=== PATIENT | female | born 1965 | race Caucasian/White ===

== ENCOUNTER → 2019-05-30 14:19 | Outpatient (BNVA) | payer MEDICAID, SELFPAY | PROVIDERS: Family Provider Family Medicine; PCP Family Medicine; Visit Provider Specialist | DX: G43.711 Chronic migraine without aura, intractable, with status migrainosus (principal); F44.5 Conversion disorder with seizures or convulsions; F17.210 Nicotine dependence, cigarettes, uncomplicated | CPT/HCPCS: 64615; 99213; J0585 ==

== ENCOUNTER → 2019-09-05 14:41 | Outpatient (BNVA) | payer MEDICAID, SELFPAY | PROVIDERS: Family Provider Family Medicine; PCP Family Medicine; Visit Provider Specialist | DX: G43.711 Chronic migraine without aura, intractable, with status migrainosus (principal); F44.5 Conversion disorder with seizures or convulsions; F17.210 Nicotine dependence, cigarettes, uncomplicated | CPT/HCPCS: 64615; 99212; J0585 ==

== ENCOUNTER → 2019-11-28 12:50 | Outpatient (BNVA) | payer MEDICAID, SELFPAY | PROVIDERS: Family Provider Family Medicine; PCP Family Medicine; Visit Provider Specialist | DX: G43.711 Chronic migraine without aura, intractable, with status migrainosus (principal); F44.5 Conversion disorder with seizures or convulsions; F17.210 Nicotine dependence, cigarettes, uncomplicated | CPT/HCPCS: 64615; 99212; 99213; J0585 ==

== ENCOUNTER → 2020-02-20 09:28 | Outpatient (BNVA) | payer MEDICAID, SELFPAY | PROVIDERS: Family Provider Family Medicine; PCP Family Medicine; Visit Provider Specialist | DX: G43.711 Chronic migraine without aura, intractable, with status migrainosus (principal); F44.5 Conversion disorder with seizures or convulsions; F17.210 Nicotine dependence, cigarettes, uncomplicated | CPT/HCPCS: 64615; 99212; J0585 ==

== ENCOUNTER 2020-03-23 09:41 | Outpatient (CLI) | payer MEDICAID, SELFPAY ==
--- NOTE | 2020-03-23 09:52 | MR_ITS ---
WS: [id number] MRI HEAD AND ORBITS WITHOUT GADOLINIUM ENHANCEMENT. TECHNIQUE: Sagittal T1, T2 axial, T2 axial FLAIR, axial susceptibility weighted imaging, axial diffus ion weighted images, and coronal T2 images were obtained. . Axial T1 thin and High-resolution T2 imag ing of the orbits obtained. CLINICAL INFORMATION: UNSPECIFIED FIELD OF VISION DEFECT COMPARISON: CT head FINDINGS: No evidence of restricted diffusion to suggest acute ischemia. Ventricular system and basal cisterns are patent. Moderate small vessel changes. Mild parenchymal volume loss. Small vessel changes in the bryan. No hemosiderin on susceptibly weighted images. Normal optic chiasm and pituitary infundibulum. Normal cavernous sinuses and Meckel's cave. Temporal lobes and hippocampal formations are normal in appearance. No evidence of optic nerve edema. Normal i ntraconal fat. Normal visualized rectus muscles. MR/MR head orbits wo con [id number] IMPRESSION: 1. No evidence of restricted diffusion to suggest acute ischemia. 2. Mild small vessel changes with mild parenchymal volume loss. Small vessel c hanges in the bryan. 3. Normal optic chiasm and pituitary infundibulum. No edema in the optic nerve s. 4. Normal cavernous sinuses and Meckel's cave. 5. Normal intraconal fat. Normal visualized rectus muscles.
== END 2020-03-23 09:42 | disposition home or self-care (01) ==
LOC: RADWPI 09:44
PROVIDERS: PCP Family Medicine; Visit Provider Ophthalmology
DX: H53.40 Unspecified visual field defects (principal)
CPT/HCPCS: 70336; 70551

== ENCOUNTER → 2020-05-21 11:24 | Outpatient (BNVA) | payer MEDICAID, SELFPAY | PROVIDERS: PCP Family Medicine; Visit Provider Specialist | DX: G43.711 Chronic migraine without aura, intractable, with status migrainosus (principal); F44.5 Conversion disorder with seizures or convulsions; F17.210 Nicotine dependence, cigarettes, uncomplicated | CPT/HCPCS: 64615; 99212; J0585 ==

== ENCOUNTER → 2020-08-13 10:04 | Outpatient (BNVA) | payer MEDICAID, SELFPAY | PROVIDERS: PCP Family Medicine; Visit Provider Specialist | DX: G43.711 Chronic migraine without aura, intractable, with status migrainosus (principal); F44.5 Conversion disorder with seizures or convulsions; F17.210 Nicotine dependence, cigarettes, uncomplicated | CPT/HCPCS: 64615; 99212; J0585 ==

== ENCOUNTER 2020-10-09 14:52 | Outpatient (CLI) | payer MEDICAID, SELFPAY ==
--- NOTE | 2020-10-09 14:57 | XR_ITS ---
WS: [id number] Exam: XR lumbar spine 2-3V* [id number] Date/Time of Exam: 10/09/2020 2:57 PM Reason For Exam: DORSALGA Findings: In the AP projection, the lumbar spine is straight. The sacroiliac joints are open. The facet struc tures are bilaterally symmetrical. In the lateral projection, the lumbar curve is well maintained. The intervertebral disc spaces are intact. No fractures or anomalies of the lumbar spine are noted. Atherosclerotic plaquing of the abdominal aorta. XR/XR lumbar spine 2-3V* [id number] IMPRESSION: Negative lumbar spine.
== END 2020-10-09 14:53 | disposition home or self-care (01) ==
PROVIDERS: PCP Family Medicine; Visit Provider Family Medicine
DX: M54.5 Low back pain (principal)
CPT/HCPCS: 72100

== ENCOUNTER → 2020-11-05 08:06 | Outpatient (BNVA) | payer MEDICAID, SELFPAY | PROVIDERS: PCP Family Medicine; Visit Provider Specialist | DX: G43.709 Chronic migraine without aura, not intractable, without status migrainosus (principal); F17.210 Nicotine dependence, cigarettes, uncomplicated | CPT/HCPCS: 64615; J0585 ==

== ENCOUNTER 2021-02-04 10:45 | Outpatient (CLI) | payer MEDICAID, SELFPAY ==
--- NOTE | 2021-02-04 10:50 | MR_ITS ---
WS: [id number] MRI LUMBAR SPINE NONCONTRAST TECHNIQUE: Sagittal T1, T2 and STIR imaging. Axial T1 and T2 imaging. CLINICAL INFORMATION: BACK PAIN;DORSALGIA UNSPEC COMPARISON: FINDINGS: Mild lumbar curve. No acute compression. No high-grade central canal stenosis. Mild disc bulge L5-S1 with a small annular tear. This is similar in appearance to 2018. L1-L2: Normal. L2-L3: Normal. L3-L4: No significant disc bulging. Mild facet arthropathy. Spinal canal and foramen are patent. L4-L5: Minimal annular bulging. Slight effacement of ventral thecal sac. Slight narrowing of the righ t subarticular recess. Mild right L4-5 foraminal narrowing. Mild facet arthropathy. L5-S1: Shallow right pericentral protrusion with a small annular tear impinges the traversing S1 nerv e root in the subarticular recess. Recommend correlation for right S1 nerve root symptoms. Foramen ar e patent. Mild facet arthropathy. This is unchanged since 2018. Visualized pelvic bony structures: Normal. Paravertebral soft tissues: Normal. Complex left renal lesion likely complex hemorrhagic cyst measuring 1.0 CM but technically indetermin ant. This can be further evaluated with ultrasound. MR/MR lumbar spine wo con* [id number] IMPRESSION: 1. Overall no significant changes since the MRI in 2018. 2. Mild lumbar curve. No acute compression. No high-grade central canal stenos is. 3. Mild annular bulging L4-5 with slight impingement on the right subarticular recess and traversing right L5 nerve root. Mild right L4-5 foraminal narrowing . 4. Shallow right pericentral protrusion L5-S1 with an annular tear. This impin ges the traversing right S1 nerve root in the subarticular recess. Correlation for S1 nerve root symptoms. 5. Complex left renal lesion likely complex hemorrhagic cyst measuring 1.0 CM but technically indeterminant. This can be further evaluated with ultrasound.
== END 2021-02-04 10:46 | disposition home or self-care (01) ==
LOC: RADSHAW 10:49
PROVIDERS: PCP Family Medicine; Visit Provider Family Medicine
DX: G43.711 Chronic migraine without aura, intractable, with status migrainosus (principal); M54.9 Dorsalgia, unspecified; F44.5 Conversion disorder with seizures or convulsions; M54.5 Low back pain; F17.210 Nicotine dependence, cigarettes, uncomplicated
CPT/HCPCS: 64615; 72148; 99212; 99213; J0585

== ENCOUNTER → 2021-04-29 14:43 | Outpatient (BNVA) | payer MEDICAID, SELFPAY | PROVIDERS: PCP Family Medicine; Visit Provider Specialist | DX: G43.711 Chronic migraine without aura, intractable, with status migrainosus (principal); F17.210 Nicotine dependence, cigarettes, uncomplicated | CPT/HCPCS: 64615 ==

== ENCOUNTER 2021-05-10 07:20 | Outpatient (CLI) | payer MEDICAID, SELFPAY ==
--- NOTE | 2021-05-10 07:23 | US_ITS ---
WS: [id number] ULTRASOUND RENAL TECHNIQUE: Ultrasound examination of both kidneys. CLINICAL INFORMATION: CYST LT KIDNEY COMPARISON: None. FINDINGS: RIGHT: Right kidney is normal in size and appearance. Echogenicity: Normal. Cortical thickness: 1.2 cm; Normal. Hydronephrosis: None. Perinephric fluid: None. Right kidney measures: 12.0 cm x 5.3 cm x 5.4 cm. LEFT: Left renal cyst measuring 1.0 x 0.8x 0.9 cm Left kidney is normal in size and appearance. Echogenicity: Normal. Cortical thickness: 0.9 cm; Normal. Hydronephrosis: None. Perinephric fluid: None. Left kidney measures: 11.9 cm x 4.4 cm x 4.7 cm. Normal visualized aorta. Normal decompressed bladder. US/US renal BI* [id number] IMPRESSION: 1. Simple left upper pole renal cyst measuring 1.0 x 0.8 1.9 cm 2. No hydronephrosis in either kidney.
== END 2021-05-10 07:21 | disposition home or self-care (01) ==
LOC: RAD 07:21
PROVIDERS: PCP Family Medicine; Visit Provider Family Medicine
DX: N28.1 Cyst of kidney, acquired (principal)
CPT/HCPCS: 76770

== ENCOUNTER → 2021-07-22 14:55 | Outpatient (BNVA) | payer MEDICAID, SELFPAY | PROVIDERS: PCP Family Medicine; Visit Provider Specialist | DX: G43.711 Chronic migraine without aura, intractable, with status migrainosus (principal); F17.210 Nicotine dependence, cigarettes, uncomplicated | CPT/HCPCS: 64615; J0585 ==

== ENCOUNTER → 2021-10-14 15:31 | Outpatient (BNVA) | payer MEDICAID, SELFPAY | PROVIDERS: PCP Family Medicine; Visit Provider Specialist | DX: G43.711 Chronic migraine without aura, intractable, with status migrainosus (principal) | CPT/HCPCS: 64615; J0585 ==

== ENCOUNTER → 2022-01-06 14:52 | Outpatient (BNVA) | payer MEDICAID, SELFPAY | PROVIDERS: PCP Family Medicine; Visit Provider Specialist | DX: G43.711 Chronic migraine without aura, intractable, with status migrainosus (principal) | CPT/HCPCS: 64615; J0585 ==

== ENCOUNTER → 2022-03-31 15:30 | Outpatient (BNVA) | payer MEDICAID, SELFPAY | PROVIDERS: PCP Family Medicine; Visit Provider Specialist | DX: G43.711 Chronic migraine without aura, intractable, with status migrainosus (principal) | CPT/HCPCS: 64615; J0585 ==

== ENCOUNTER → 2022-06-23 14:57 | Outpatient (BNVA) | payer MEDICAID, SELFPAY | PROVIDERS: PCP Family Medicine; Visit Provider Specialist | DX: G43.711 Chronic migraine without aura, intractable, with status migrainosus (principal) | CPT/HCPCS: 64615; J0585 ==

== ENCOUNTER → 2022-09-16 14:23 | Outpatient (BNVA) | payer MEDICAID, SELFPAY | PROVIDERS: PCP Family Medicine; Visit Provider Specialist | DX: G43.711 Chronic migraine without aura, intractable, with status migrainosus (principal) | CPT/HCPCS: 64615; J0585 ==

== ENCOUNTER → 2022-12-15 13:18 | Outpatient (BNVA) | payer MEDICAID, SELFPAY | PROVIDERS: PCP Family Medicine; Visit Provider Specialist | DX: G43.711 Chronic migraine without aura, intractable, with status migrainosus (principal); F44.5 Conversion disorder with seizures or convulsions | CPT/HCPCS: 64615; J0585 ==

== ENCOUNTER 2023-01-20 08:02 | Outpatient (CLI) | payer MEDICAID, SELFPAY ==
--- NOTE | 2023-01-20 08:15 | MM_ITS ---
WS: [id number] BILATERAL SCREENING DIGITAL TOMOSYNTHESIS MAMMOGRAM WITH CAD HISTORY: SCREENING COMPARISON: 10/25/2019, 03/07/2018 Bilateral CC and MLO views with tomosynthesis and synthetic mammography submitted. Computer aided det ection analyzed. Breast composition: There are scattered areas of fibroglandular density. No suspicious masses, microc alcifications or architectural distortion. Benign calcification in the anterior RIGHT breast. IMPRESSION: MM/[place] [id number] BI-RADS: 2-Benign FOLLOW UP: 1 Year Follow-up
== END 2023-01-20 08:03 | disposition home or self-care (01) ==
PROVIDERS: PCP Family Medicine; Visit Provider Family Medicine
DX: Z12.31 Encounter for screening mammogram for malignant neoplasm of breast (principal)
CPT/HCPCS: 77063; 77067

== ENCOUNTER → 2023-03-16 13:31 | Outpatient (BNVA) | payer MEDICAID, SELFPAY | PROVIDERS: PCP Family Medicine; Visit Provider Specialist | DX: G43.711 Chronic migraine without aura, intractable, with status migrainosus (principal); F44.5 Conversion disorder with seizures or convulsions | CPT/HCPCS: 64615; 99212; J0585 ==

== ENCOUNTER → 2023-06-15 11:51 | Outpatient (BNVA) | payer MEDICAID, SELFPAY | PROVIDERS: PCP Family Medicine; Visit Provider Specialist | DX: F44.5 Conversion disorder with seizures or convulsions (principal); G43.711 Chronic migraine without aura, intractable, with status migrainosus | CPT/HCPCS: 64615; 99213; J0585 ==

== ENCOUNTER → 2023-09-14 11:33 | Outpatient (BNVA) | payer MEDICAID, SELFPAY | PROVIDERS: PCP Family Medicine; Visit Provider Specialist | DX: R26.9 Unspecified abnormalities of gait and mobility (principal); G43.711 Chronic migraine without aura, intractable, with status migrainosus; F44.5 Conversion disorder with seizures or convulsions | CPT/HCPCS: 64615; 99214; J0585 ==

== ENCOUNTER 2023-10-17 15:59 | Outpatient (CLI) | payer MEDICAID, SELFPAY ==
--- NOTE | 2023-10-17 16:45 | MR_ITS ---
WS: [id number] MRI HEAD WITHOUT CONTRAST TECHNIQUE: Sagittal T1, T2 axial, T2 axial FLAIR, axial and coronal T1 images, axial susceptibility w eighted imaging, axial diffusion weighted images, and coronal T2 images were obtained. CLINICAL INFORMATION: R26.9 - Unspecified abnormalities of gait and mobility COMPARISON: MRI 2020 FINDINGS: No evidence of restricted diffusion to suggest acute ischemia. Ventricular system and basal cisterns are patent. Moderate to advanced patchy supratentorial white matter changes advanced for patient this age has progressed. This can be seen with hypertension, diabetes, collagen vascular disease, and sma ll vessel disease. White matter changes in the bryan likely due to small vessel disease has progressed . Mild parenchymal volume loss. No hemosiderin on the susceptibility weighted imaging. Paranasal sinuses are well aerated. Mucosal th ickening in the LEFT mastoid tip. RIGHT mastoid air cells are well aerated. Normal posterior nasophar ynx. Temporal lobes and hippocampal formations are normal in appearance. Normal optic chiasm and pitu itary infundibulum. No other acute findings. MR/MR head wo con* [id number] IMPRESSION: 1. No evidence of restricted diffusion to suggest acute ischemia. 2. Significantly progressed supratentorial white matter changes nonspecific in a patient of this age but can be seen with hypertension, diabetes, collagen va scular disease, and small vessel disease. 3. Progressed small vessel changes in the bryan. Mild parenchymal volume loss. 4. No hemosiderin on susceptibly weighted images. 5. Temporal lobes and hippocampal formations are normal in appearance. 6. No other acute findings.
== END 2023-10-17 16:00 | disposition home or self-care (01) ==
LOC: RAD 16:00
PROVIDERS: PCP Family Medicine; Visit Provider Specialist
DX: R26.9 Unspecified abnormalities of gait and mobility (principal); J34.89 Other specified disorders of nose and nasal sinuses; R93.0 Abnormal findings on diagnostic imaging of skull and head, not elsewhere classified
CPT/HCPCS: 70551

== ENCOUNTER 2023-11-24 15:30 | Outpatient (CLI) | payer MEDICAID, SELFPAY ==
--- NOTE | 2023-11-24 15:30 | USCV_ITS ---
Jess Baltazar Age: 57 Gender: F : 1965 Exam Date: 11/24/2023 15:22 Ordering Phys: Nyla Schwarz MD Technologist: [place] [facility] [place]ication: Dizziness Risk Factors: Previous Vascular Surgery: Right Brachial BP: / Left Brachial BP: / Right Left Velocity (cm/s) Spectral Plaque Velocity (cm/s) Spectral Plaque Syst/Diast Broadening Syst/Diast Broadening 72.40/ 19.30 Prox CCA 110.70/ 27.50 78.20/ 28.10 Mid CCA 79.00 / 21.60 60.60/ 22.60 Distal CCA 67.10 / 23.60 42.40/ 18.60 Prox ICA 44.90 / 13.80 51.80/ 24.30 Mid ICA 60.00 / 15.30 65.30/ 34.10 Distal ICA 52.90 / 21.10 81.10 ECA 71.30 1.10 ICA/CCA 0.90 Antegrade Vertebral Antegrade 25.70/ 13.40 cm/s 49.90/ 13.50 cm/s Tri Subclavian Tri 121.1 89.30 0 CONCLUSIONS Right ICA stenosis <50%. Mild atheromatous plaque right carotid bulb/ICA. Left ICA stenosis <50%. Mild atheromatous plaque left carotid bulb/ICA. Intimal thickening in the common carotid arteries and internal carotid arteries bilaterally. Normal antegrade Doppler flow noted in the right vertebral artery. Normal antegrade Doppler flow noted in the left vertebral artery. Bolivar Traylor MD (Electronically Signed) Final Date: 24 November 2023 16:18 S
== END 2023-11-24 15:31 | disposition home or self-care (01) ==
PROVIDERS: PCP Family Medicine; Visit Provider Specialist
DX: I77.9 Disorder of arteries and arterioles, unspecified (principal)
CPT/HCPCS: 93880

== ENCOUNTER → 2023-12-28 14:55 | Outpatient (BNVA) | payer MEDICAID, SELFPAY | PROVIDERS: PCP Family Medicine; Visit Provider Specialist | DX: G43.711 Chronic migraine without aura, intractable, with status migrainosus (principal); R26.9 Unspecified abnormalities of gait and mobility; F44.5 Conversion disorder with seizures or convulsions | CPT/HCPCS: 64615; 99213; J0585 ==

== ENCOUNTER → 2024-04-05 12:28 | Outpatient (BNVA) | payer MEDICAID, SELFPAY | PROVIDERS: PCP Family Medicine; Visit Provider Specialist | DX: G43.711 Chronic migraine without aura, intractable, with status migrainosus (principal); R26.9 Unspecified abnormalities of gait and mobility; F44.5 Conversion disorder with seizures or convulsions | CPT/HCPCS: 64615; 99212; J0585 ==

== ENCOUNTER 2024-05-22 13:31 | Outpatient (CLI) | payer MEDICAID, SELFPAY ==
--- NOTE | 2024-05-22 13:56 | MM_ITS ---
WS: [id number] BILATERAL 3D TOMOSYNTHESIS DIGITAL SCREENING MAMMOGRAPHY WITH CAD CLINICAL INFORMATION: SCREEN HISTORY: Screening mammogram. No current complaints. COMPARISON: 2022 TECHNIQUE: Bilateral CC and MLO views. FINDINGS: Scattered fibroglandular densities bilaterally. No suspicious focal mass, asymmetry, calcifications, or architectural distortion. No evidence of malignancy. A few incidental punctate and lucent centered calcifications. MM/MM scr tomosynthesis [id number] IMPRESSION: DENSITY: There are scattered areas of fibroglandular density. BI-RADS: 2 - Benign. FOLLOW UP: 1 Year Follow-up Recommend return to annual screening mammography.
== END 2024-05-22 13:32 | disposition home or self-care (01) ==
LOC: RAD 13:32
PROVIDERS: PCP Family Medicine; Visit Provider Family Medicine
DX: Z12.31 Encounter for screening mammogram for malignant neoplasm of breast (principal); R92.323 Mammographic fibroglandular density, bilateral breasts; R92.1 Mammographic calcification found on diagnostic imaging of breast
CPT/HCPCS: 77063; 77067

== ENCOUNTER → 2024-07-12 08:45 | Outpatient (BNVA) | payer MEDICAID, SELFPAY | PROVIDERS: PCP Family Medicine; Visit Provider Specialist | DX: G43.711 Chronic migraine without aura, intractable, with status migrainosus (principal); K92.1 Melena; R12 Heartburn | CPT/HCPCS: 64615; 99204; J0585 ==

== ENCOUNTER 2024-07-30 09:42 | Day surgery (SDC) | payer MEDICAID, SELFPAY ==
[2024-07-30 10:29] VITALS: BP 155/119; PULSE 82; RESP 16; TEMP 36.4; O2SAT 95; BMI 38.3
[2024-07-30] MEDS: sodium chloride 0.9% 500 ML 15 ML IV (10:33)
--- NOTE | 2024-07-30 11:08 | P.ANESASSM_ITS ---
Pre-Anesthetic Assessment Height/Weight: Height 1.5 m Weight 86.183 kg Temp Pulse Resp BP Pulse Ox O2 Del Method 97.6 F 82 16 155/119 95 Room Air 07/30/24 10:29 07/30/24 10:29 07/30/24 10:29 07/30/24 10:29 07/30/24 10:29 07/30/24 10:29 Preop Diagnosis: Stomach pain Operation Date: 07/30/24 11:00 Proposed Procedures p EGD [id number] G0105 Z12.11 K92.1 R12(Not Applicable) - Timothy Espinal MD s Colonoscopy(Not Applicable) - Timothy Espinal MD Familial anesthetic complications: none Was Beta Juan taken within 24 hours: N/A Was Clonidine taken within 24 hours: N/A Last intake: Intake Last Liquid Date 07/29/24 Last Liquid Time 18:00 Last Solid Date 07/28/24 Last Solid Time 16:00 Social Tobacco and No alcohol 1/2 PPD pack(s) per day Exam alert, oriented x 3, clear to auscultation bilaterally and regular rate & rhythm Airway Submandibular: within normal limits Cervical ROM: within normal limits Mallampati: Class II Dentition: false History/ROS No significant history except as noted and No significant complaints Pulmonary Asthma, Chronic Obstructive Pulmonary Disease, Exertional Dyspnea and Shortness of Breath CV/HEM Myocardial Infarction No Treatment None reported Hepatic None reported GI Gastroesophageal Reflux Disease [facility] [place] None reported Neuropsych Transient Ischemic Attack Anesthetic Plan ASA status: 3 Anesthesia: MAC Medications/Allergies Home Medications ?Medication ?Instructions ?Recorded ?Confirmed ?Last Taken ?Type epinephrine 0.3 mg/0.3 mL 0.3 mg IM PRN PRN Allergic R eaction 05/30/19 07/30/24 Unknown History injection, auto-injector pregabalin 100 mg capsule (Lyrica) 100 mg PO BID 05/3007/30/24 07/25/24 History latanoprost 0.005 % eye drops 1 drp ophthalmic (eye) D AILY 05/21/20 07/30/24 07/25/24 History omeprazole magnesium 20 mg 20 mg PO DAILY 12/15/2207/25/24 History tablet,delayed release (Prilosec OTC) albuterol sulfate 90 mcg/actuation 2 puff inhalation Q 6H PRN 12/28/23 07/30/24 Unknown History aerosol inhaler Shortness Of Breath solifenacin 5 mg tablet (Vesicare) 5 mg PO DAILY 12/2707/30/24 07/25/24 History triamcinolone acetonide 0.1 % 1 applic topical DAILY 0 12/28/23 07/30/24 Unknown History topical cream diphenhydramine HCl 25 mg capsule See Rx Instructions .Route 05/13/24 07/30/24 07/25/24 Rx .COMPLEX #90 caps pregabalin 150 mg capsule 300 mg PO BID 07/12/2407/3007/25/24 History fremanezumab-vfrm 225 mg/1.5 mL 225 mg SUBCUT .[id number] 07/25/24 07/30/24 Unknown History subcutaneous auto-injector (Ajovy) ondansetron HCl 4 mg tablet 4 mg PO Q8H PRN Nausea And Vomiting 07/25/24 07/30/24 Unknown History Allergies Allergy/AdvReac Type Severity Reaction Status Date / Time ibuprofen (From Motrin) Allergy Verified 07/30/24 10:31 iodine Allergy Verified 07/30/24 10:31 morphine Allergy Verified 07/30/24 10:31 Penicillins Allergy Verified 07/30/24 10:31 Sulfa (Sulfonamide Allergy Verified 07/30/24 10:31 Antibiotics) Current Medications Generic Name Dose Route Start Last Admin Trade Name Freq PRN Reason Stop Dose Admin Sodium Chloride 500 mls @ 15 mls/hr 07/30/24 09:47 07/30/24 10:33 Sodium Chloride 0.9% IV 07/31/24 09:46 15 mls/hr .Q24H PRN Administration COLONOSCOPY FLUIDS PFSH Anesthesia Family History Other Bleeding disorder CAD (coronary artery disease) Diabetes Hypertension Stroke Social History Smoking and tobacco/nicotine status: current every day tobacco/nicotine user (1/4 pack per day) cigarettes Packs smoked per day: 1 Alcohol intake: never Substance/Drug Use: never Data Anesthesia Cardiac Studies: No Data to Display
--- NOTE | 2024-07-30 11:28 | W.PM.OPSUD ---
Surgery/Procedure H&P Update DATE OF PROCEDURE: July 30, 2024 DATE H&P PERFORMED: 07/12/24 H&P UPDATE INFORMATION: I have reviewed H&P completed within last 30 days, I have examined patient prior to procedure and No changes to prior documentation PREOP DIAGNOSIS: Stomach pain PLANNED PROCEDURE: Operation Date: 07/30/24 11:00 Proposed Procedures p EGD [id number] G0105 Z12.11 K92.1 R12(Not Applicable) - Timothy Espinal MD s Colonoscopy(Not Applicable) - Timothy Espinal MD
[2024-07-30 11:57] VITALS: BP 135/93; PULSE 77; RESP 18; TEMP 36.2; O2SAT 94
[2024-07-30 12:10] VITALS: BP 148/99; PULSE 73; RESP 16; O2SAT 95
--- NOTE | 2024-07-30 12:25 | ANE.PACU2 ---
Inpatient post-anesthesia follow up: Airway intact: Yes Vital signs: Temperature 97.2 F Pulse Rate 73 Respiratory Rate 16 Blood Pressure 148/99 Pulse Oximetry 95 Oxygen Delivery Me thod Room Air Oxygen Flow Rate Fraction of Inspir ed Oxygen Hydration adequate: Yes Nausea and vomiting: No Pain level: 1 Mental status: Baseline
== END 2024-07-30 12:29 | disposition home or self-care (01) ==
PROVIDERS: PCP Family Medicine; Visit Provider Student in an Organized Health Care Education/Training Program
PROC: 0DJ08ZZ Inspection of Upper Intestinal Tract, Via Natural or Artificial Opening Endoscopic (ICD-10-PCS; principal; 2024-07-30 11:00)
PROC: 0DJD8ZZ Inspection of Lower Intestinal Tract, Via Natural or Artificial Opening Endoscopic (ICD-10-PCS; CPT 45378; 2024-07-30 11:00)
DX: D12.4 Benign neoplasm of descending colon (principal); K92.1 Melena; K62.1 Rectal polyp; K29.50 Unspecified chronic gastritis without bleeding; J44.9 Chronic obstructive pulmonary disease, unspecified; K21.9 Gastro-esophageal reflux disease without esophagitis; I25.2 Old myocardial infarction; Z86.73 Personal history of transient ischemic attack (TIA), and cerebral infarction without residual deficits; Z79.899 Other long term (current) drug therapy; Z88.2 Allergy status to sulfonamides; Z88.0 Allergy status to penicillin; Z88.5 Allergy status to narcotic agent; Z88.8 Allergy status to other drugs, medicaments and biological substances; Z91.041 Radiographic dye allergy status; F17.210 Nicotine dependence, cigarettes, uncomplicated
CPT/HCPCS: 43239; 45380; 45385; 88305; J2704; J7040

== ENCOUNTER → 2024-08-15 08:41 | Outpatient (BNVA) | payer MEDICAID, SELFPAY | PROVIDERS: PCP Family Medicine; Visit Provider Student in an Organized Health Care Education/Training Program | DX: Z09 Encounter for follow-up examination after completed treatment for conditions other than malignant neoplasm (principal) | CPT/HCPCS: 99213 ==

== ENCOUNTER → 2024-10-11 14:04 | Outpatient (BNVA) | payer MEDICAID, SELFPAY | PROVIDERS: PCP Family Medicine; Visit Provider Specialist | DX: G43.711 Chronic migraine without aura, intractable, with status migrainosus (principal); R26.9 Unspecified abnormalities of gait and mobility; F44.5 Conversion disorder with seizures or convulsions | CPT/HCPCS: 64615; J0585; J9999 ==

== ENCOUNTER 2025-04-03 10:13 | Outpatient (CLI) | payer MEDICAID, SELFPAY ==
--- NOTE | 2025-04-03 10:30 | CT_ITS ---
WS: [id number] LDCT LUNG CANCER SCREENING TECHNIQUE: Noncontrast CT of the chest with coronal and sagittal reformatted images. CLINICAL INFORMATION: COPD COMPARISON: None. DLP: 81.30 mGy.cm DIvol: Mean CTDIvol: 2.10 (mGy) All CT scans at [facility] use at least one of these dose optimization techniques: automated exposure control; mA and/or kV adjustment per patient size (includes targeted exams where dose is matched to clinical indication); or iterative reconstruction. FINDINGS: Calcified granuloma RIGHT lower lobe laterally. Moderate chronic emphysematous changes with paraseptal emphysema. Hepatomegaly. Small esophageal hiatal hernia. Adrenal glands are normal. Aortic calcification. Normal caliber thoracic aorta. Coronary calcification. No mediastinal or hilar lymphadenopathy. Tiny esophageal hiatal hernia. No axillary lymphadenopathy. Mild thoracic curve. Mild thoracic kyphosis. CT/CT lung screening [id number] IMPRESSION: LUNG-RADS: 2-Benign Appearance or Behavior FOLLOW UP: 12 Month: Continue annual screening with LDCT
== END 2025-04-03 10:14 | disposition home or self-care (01) ==
LOC: RAD 10:14
PROVIDERS: PCP Family Medicine; Visit Provider Family Medicine
DX: Z12.2 Encounter for screening for malignant neoplasm of respiratory organs (principal); J44.9 Chronic obstructive pulmonary disease, unspecified; K44.9 Diaphragmatic hernia without obstruction or gangrene; I25.84 Coronary atherosclerosis due to calcified coronary lesion; M40.04 Postural kyphosis, thoracic region; J43.8 Other emphysema
CPT/HCPCS: 71271

== ENCOUNTER 2025-04-21 11:27 | Outpatient (CLI) | payer MEDICAID, SELFPAY ==
--- NOTE | 2025-04-21 11:00 | MR_ITS ---
WS: [id number] MRI HEAD WITHOUT CONTRAST TECHNIQUE: Sagittal T1, T2 axial, T2 axial FLAIR, axial and coronal T1 images, axial susceptibility weighted imaging, axial diffusion weighted images, and coronal T2 images were obtained. CLINICAL INFORMATION: peripheral vision loss COMPARISON: 2023 FINDINGS: Some images limited by motion artifact. Fast imaging performed. No evidence of restricted diffusion to suggest acute ischemia. Ventricular system and basal cisterns are patent. Moderate to advanced patchy supratentorial white matter changes advanced for patient this age stable since 2023. This is likely due to small vessel disease in a patient this age. Small vessel changes in the bryan. Mild parenchymal volume loss. No hemosiderin on the susceptibility weighted imaging. Tiny chronic lacunar infarct RIGHT cerebellum. Normal vascular flow voids at the skull base. No extra-axial fluid collections. Paranasal sinuses mastoid air cells are well aerated. Temporal lobes and hippocampal formations are normal in appearance. Normal optic chiasm and pituitary infundibulum. No evidence of sellar or suprasellar mass. MR/MR pituitary wo con [id number] IMPRESSION: Some images limited by motion. 1. No evidence of restricted diffusion to suggest acute ischemia. 2. Moderate to advanced supratentorial small vessel changes with small vessel changes in the bryan. 3. Tiny chronic lacunar infarct RIGHT cerebellum more apparent today but proba carol present previously 4. Mild parenchymal volume loss. 5. No hemosiderin on the susceptibility weighted images. 6. No evidence of sellar or suprasellar mass on this noncontrast study. 7. Normal optic chiasm.
== END 2025-04-21 11:28 | disposition home or self-care (01) ==
LOC: RAD 11:28
PROVIDERS: PCP Family Medicine; Visit Provider Family Medicine
DX: G31.89 Other specified degenerative diseases of nervous system (principal)
CPT/HCPCS: 70551; 80053; 80061; 83721; 84439; 84443; 85025

== ENCOUNTER → 2025-04-24 10:39 | Outpatient (BNVA) | payer MEDICAID, SELFPAY | PROVIDERS: PCP Family Medicine; Visit Provider Specialist | DX: G43.711 Chronic migraine without aura, intractable, with status migrainosus (principal) | CPT/HCPCS: 64615; J0585; J9999 ==